=== PATIENT | male | born 2000 | race Caucasian/White ===

== ENCOUNTER 2022-08-09 07:17 | Emergency (ER) | payer BC, SELFPAY ==
[2022-08-09] MEDS ORDERED: Morphine 4 MG/ML VIAL ONE (07:45)
[2022-08-09] MEDS ORDERED: Boostrix 0.5 ML (Tdap) VIAL (>/=7 yrs of age) ONE (07:45)
[2022-08-09] MEDS ORDERED: Ondansetron PF 4 MG/2 ML Vial ONE ×2 (07:45→09:10)
[2022-08-09] MEDS ORDERED: Ketamine 50 MG/ML (10ML VIAL) ONE (08:18)
[2022-08-09] MEDS ORDERED: Fentanyl 100 MCG/2 ML VIAL ONE (08:43)
[2022-08-09] MEDS ORDERED: CEFAZOLIN 2 GM VIAL ONE (08:53)
[2022-08-09] MEDS ORDERED: Fentanyl 250 MCG/5 ML VIAL ONE (09:09)
[2022-08-09] MEDS ORDERED: Lidocaine 1% PF 5 ML VIAL ONE (09:09)
[2022-08-09] MEDS ORDERED: PROPOFOL 20 ML ONE (09:09)
[2022-08-09] MEDS ORDERED: Dexamethasone 4 mg/ml Vial ONE ×3 (09:10→12:49)
[2022-08-09] MEDS ORDERED: EPINEPHrine 1 MG/ML AMP ONE (09:22)
[2022-08-09] MEDS ORDERED: Bupivacaine PF 0.5% 30 ML VIAL ONE (09:23)
[2022-08-09 09:53] LABS: SARS-CoV-2 NAA Rapid Test DETECTED (NotDetected)
[2022-08-09] MEDS ORDERED: Ropivacaine 0.5% HCl/PF (150 MG/30 ML VIAL) ONE (10:36)
[2022-08-09] MEDS ORDERED: PHENYLEPHRINE-NS 100 MCG/ML 10 ML SYRINGE ONE (13:00)
[2022-08-09] MEDS ORDERED: CEFAZOLIN 1 GM VIAL ONE (13:09)
== END 2022-08-09 09:06 | disposition admitted as inpatient to this hospital (09) ==
LOC: CSHERS 07:17
DX: U07.1 COVID-19 (principal); S52.602B Unspecified fracture of lower end of left ulna, initial encounter for open fracture type I or II; S52.502B Unspecified fracture of the lower end of left radius, initial encounter for open fracture type I or II; W19.XXXA Unspecified fall, initial encounter
CPT/HCPCS: 29125; 90471; 90715; 96374; 96375; C1713; C1874; J0171; J0690; J1100; J2270; J2405; J2704; J2795; J3010; S0020; U0002